=== PATIENT | male | born 1940 ===

== ENCOUNTER 2017-09-11 14:38 | Emergency (ER) | payer MEDICARE, MEDICAID ==
[2017-09-11 14:39] VITALS: BMI 25.1
[2017-09-11 14:57] VITALS: BP 129/68; PULSE 64; RESP 20; TEMP 98.4; O2SAT 101
--- NOTE | 2017-09-11 18:27 | C.PDOC ---
History Of Present Illness 77 y/o male presents to the ER complaining of redness to his right eye which occurred today. Patient states that the eye became 'suddenly red." Patient denies having trauma and changes in vision. Of note, patient is in ER with daughter. Chief Complaint (Nursing): Eye Problem History Per: Patient History/Exam Limitations: no limitations Onset/Duration Of Symptoms: Hrs Current Symptoms Are (Timing): Still Present Severity: Moderate Past Medical History Reviewed: Historical Data, Nursing Documentation, Vital Signs Vital Signs: Last Vital Signs Temp 98.4 F 09/11/17 14:55 Pulse 64 09/11/17 14:55 Resp 20 09/11/17 14:55 BP 129/68 09/11/17 14:55 Pulse Ox 101 H 09/11/17 18:31 - Medical History PMH: Arthritis, HTN Denies: Chronic Kidney Disease Surgical History: No Surg Hx Family History: States: No Known Family Hx - Social History Hx Alcohol Use: No Hx Substance Use: No Review Of Systems Except As Marked, All Systems Reviewed And Found Negative. Eyes: Positive for: Redness (right eye redness). Negative for: Vision Change Physical Exam - Physical Exam Appears: Non-toxic, No Acute Distress Skin: Normal Color, Warm, Dry Head: Atraumatic, Normacephalic Eye(s): right: Other (subconjunctival hemorrhage to lateral aspect of eye), left : Normal Inspection Nose: Normal Oral Mucosa: Moist Neck: Supple Chest: Symmetrical Cardiovascular: Rhythm Regular Respiratory: Normal Breath Sounds, No Rales, No Rhonchi, No Wheezing Neurological/Psych: Oriented x3, Normal Speech ED Course And Treatment O2 Sat by Pulse Oximetry: 101 (RA) Pulse Ox Interpretation: Normal Medical Decision Making Medical Decision Making: Patient has been discharged and instructed to follow up with PMD in 2-3 days. Disposition - Disposition Referrals: [facility] Alberto Rivera, [Non-Staff] - Disposition: HOME/ ROUTINE Disposition Time: 15:30 Condition: GOOD Additional Instructions: LUZ BECK, thank you for letting us take care of you today. Your provider was Remy Ruvalcaba DO and you were treated for EYE PAIN. The emergency medical care you received today was directed at your acute symptoms. If you were prescribed any medication, please fill it and take as directed. It may take several days for your symptoms to resolve. Return to the Emergency Department if your symptoms worsen, do not improve, or if you have any other problems. Please contact your doctor or call one of the physicians/clinics you have been referred to that are listed on the Patient Visit Information form that is included in your discharge packet. Bring any paperwork you were given at discharge with you along with any medications you are taking to your follow up visit. Our treatment cannot replace ongoing medical care by a primary care provider outside of the emergency department. Thank you for allowing the [facility] team to be part of your care today. Folllow up with your primary care doctor in 2-3 days for re-evaluation and further management. Instructions: Subconjunctival Hemorrhage Forms: [employer] ([place]) - Clinical Impression Clinical Impression: Subconjunctival hemorrhage - Scribe Statement The provider has reviewed the documentation as recorded by the Scribe Minesh Diaz Provider Attestation: All medical record entries made by the Scribe were at my direction and personally dictated by me. I have reviewed the chart and agree that the record accurately reflects my personal performance of the history, physical exam, medical decision making, and the department course for this patient. I have also personally directed, reviewed, and agree with the discharge instructions and disposition.
== END 2017-09-11 15:51 | disposition home or self-care (01) ==
LOC: C.ER 14:38
DX: H11.31 Conjunctival hemorrhage, right eye (principal)